=== PATIENT | female | born 1995 | race Two or more races ===

== ENCOUNTER → 2023-05-19 | Outpatient (CLI) | payer BC ==
[2023-05-20 07:07] LABS: RPR Non Reactive (Non Reactive)
== END | disposition home or self-care (01) ==
LOC: LAB 08:53
PROVIDERS: ATTEND Obstetrics & Gynecology
DX: Z11.3 Encounter for screening for infections with a predominantly sexual mode of transmission (principal)
CPT/HCPCS: 86592; 86703